=== PATIENT | female | born 2000 | race Caucasian/White ===

== ENCOUNTER 2020-10-05 21:51 | Emergency (ER) | payer OTHER ==
[~2020-10-05] VITALS: Ht 177.8 cm; Wt 63.5 kg
[2020-10-05 21:55] VITALS: BP 117/65
[2020-10-05] MEDS ORDERED: LACTATED RINGERS 1000ML 1,000 ML IV ONE ×2 (22:00→23:48)
[2020-10-05] MEDS ORDERED: ONDANSETRON 4MG INJ IVP ONE (22:00)
[2020-10-05 22:47] LABS: BASOPHILS % (AUTO) 0.4 % (0.0-5.0); EOSINOPHILS % (AUTO) 0.1 % (0.0-8.0); HEMATOCRIT 37.7 % (36-48); LYMPHOCYTES % (AUTO) 14.2 % (21.0-51.0); MEAN CORPUSCULAR HEMOGLOBIN 28.3 pg (27.0-33.0); MEAN CORPUSCULAR VOLUME 83.4 fL (80-100); MONOCYTES % (AUTO) 7.1 % (3.0-13.0); PLATELET COUNT (AUTO) 263 K/uL (130-400); RED BLOOD CELL COUNT(AUTO) 4.52 MIL/uL (4.00-5.50); RED CELL DISTRIBUTION WIDTH 12.5 % (11.0-15.5); WHITE BLOOD COUNT (AUTO) 9.1 K/uL (4.8-10.8)
[2020-10-05 22:51] LABS: BILIRUBIN,URINE Negative (NEGATIVE); COLOR,URINE Dark Yellow (YELLOW); GLUCOSE, URINE (UA) Negative (NEGATIVE); KETONES,URINE >=80 mg/dL (NEGATIVE); LEUKOCYTE ESTERASE ,URINE Moderate (NEGATIVE); NITRATE,URINE Negative (NEGATIVE); OCCULT BLOOD,URINE Negative (NEGATIVE); PH,URINE 5.5 (5.0-8.0); PROTEIN,URINE POS 1+ mg/dL (NEGATIVE)
[2020-10-05 22:52] LABS: APPEARANCE,URINE CLOUDY (CLEAR)
[2020-10-05 22:54] LABS: HCG,QUAL RESULT POSITIVE (NEGATIVE)
[2020-10-05 22:58] LABS: CREATININE 0.6 mg/dL (0.5-1.5); POTASSIUM 3.5 mmol/L (3.5-5.1)
[2020-10-05 23:01] LABS: BACTERIA,URINE Moderate /HPF (None Seen); MUCUS,URINE Few LPF (None Seen); RBC,URINE None Seen /HPF (0-1); SQUAMOUS EPITHELIAL CELL,UR Moderate /HPF (0-2); WBC,URINE 26-50 /HPF (0-1)
[2020-10-05 23:03] LABS: ALBUMIN 3.9 g/dL (3.5-5.0); BILIRUBIN,TOTAL 0.8 mg/dL (0.2-1.0); TOTAL PROTEIN, SERUM 7.3 g/dL (6.0-8.3)
[2020-10-05] MEDS ORDERED: ONDANSETRON 4MG INJ ONE (23:48)
[2020-10-06] MEDS ORDERED: PROMETHAZINE HCL 25 MG/ML 1ML AMPULE IM ONE (00:30)
[2020-10-06] MEDS ORDERED: CEFAZOLIN SODIUM 1 GM VIAL IVP ONE (00:30)
[2020-10-06] MEDS ORDERED: LACTATED RINGERS 1000ML 1,000 ML IV ONE (01:12)
[2020-10-06] MEDS ORDERED: DOXY1TAB3 PO (02:11)
[2020-10-06] MEDS ORDERED: CEPH500B PO (02:11)
[2020-10-06 02:40] VITALS: BP 121/72
== END 2020-10-06 02:42 | disposition home or self-care (01) ==
LOC: EDH 21:51
DX: O23.11 Infections of bladder in pregnancy, first trimester (principal); O21.1 Hyperemesis gravidarum with metabolic disturbance; O99.281 Endocrine, nutritional and metabolic diseases complicating pregnancy, first trimester; E86.0 Dehydration; Z79.899 Other long term (current) drug therapy; Z3A.01 Less than 8 weeks gestation of pregnancy
CPT/HCPCS: 36415; 76801; 80053; 81001; 81025; 83690; 85025; 87088; 96361; 96374; 99284; J2405; J7120 ×2